=== PATIENT | female | born 1940 | race Caucasian/White ===

== ENCOUNTER 2024-09-12 02:55 | Inpatient (IN) ==
[2024-09-12] MEDS ORDERED: IOPAMIDOL 100 ML BOTTLE IV ONE (02:56)
[2024-09-12] MEDS: ONDANSETRON 4 MG/2 ML VIAL IV ONE (03:19)
[2024-09-12 03:38] LABS: Basophils # (Auto) 0.03 K/mcL (0.00-0.30); Basophils % (Auto) 0.4 % (0.0-2.0); Eosinophils # (Auto) 0.34 K/mcL (0.00-0.70); Eosinophils % (Auto) 4.6 % (0.0-7.0); Hematocrit 25.4 % (34.1-44.9); Hemoglobin 7.9 g/dL (11.2-15.7); Lymphocytes # (Auto) 0.72 K/mcL (1.50-4.80); Lymphocytes % (Auto) 9.7 % (15.5-49.0); Mean Corpuscular HGB Conc 31.1 g/dL (31.0-36.0); Monocytes # (Auto) 0.43 K/mcL (0.10-0.90); Monocytes % (Auto) 5.8 % (1.0-12.0); Neutrophils % (Auto) 79.4 % (38.0-78.0); Platelet Count 241 K/mcL (140-440); RBC 2.53 M/mcL (3.59-5.38); WBC 7.4 K/mcL (4.5-11.0)
[2024-09-12 03:58] LABS: Alcohol,Blood < 0.010 gm/dL (<0.010)
[2024-09-12 04:24] LABS: INR 1.2 (0.9-1.1); Prothrombin Time 16.0 sec (11.9-14.5)
[2024-09-12 05:08] LABS: Bilirubin,Urine Negative (Negative); Color,Urine YELLOW; Glucose,Urine (UA) Negative (Negative); Ketones,Urine Negative (Negative); Leukocyte Esterase,Urine Negative /uL (Negative); PH,Urine 6.0 (5.0-9.0); Protein,Urine Negative (Negative); Specific Gravity,Urine 1.028 (1.000-1.035); Urobilinogen,Urine Negative
[2024-09-12 05:20] LABS: ALT/SGPT 14 U/L (<40); AST/SGOT 21 U/L (<32); Albumin 3.2 gm/dL (3.2-5.2); Albumin/Globulin Ratio 1.5 (1.0-2.3); Alkaline Phosphatase 76 U/L (39-117); Anion Gap 10.0 (8.0-16.0); Bilirubin,Total 0.4 mg/dL (0.1-1.0); Blood Urea Nitrogen 12 mg/dL (8-23); Calcium 8.4 mg/dL (8.6-10.4); Carbon Dioxide 23 mmol/L (22-30); Chloride 105 mmol/L (96-108); Globulin 2.1 gm/dL (2.2-3.7); Glucose 109 mg/dL (70-105); Potassium 3.8 mmol/L (3.3-5.1); Sodium 138 mmol/L (133-145)
[2024-09-12 05:20] LABS: Barbiturate Screen,Urine None detected; Benzodiazepines Screen,Urine None detected; Fentanyl, Urine Screen None Detected; Opiate Screen,Urine Suspect Positive; Oxycodone, Urine Screen None detected; Phencyclidine Screen,Urine None detected
[2024-09-12] MEDS ORDERED: ONDANSETRON 4 MG/2 ML VIAL IV PRN ×2 (06:55→16:22)
[2024-09-12] MEDS ORDERED: ACETAMINOPHEN 325 MG TABLET PO PRN (06:55)
[2024-09-12 07:31] LABS: Basophils # (Auto) 0.02 K/mcL (0.00-0.30); Basophils % (Auto) 0.3 % (0.0-2.0); Eosinophils # (Auto) 0.29 K/mcL (0.00-0.70); Eosinophils % (Auto) 4.5 % (0.0-7.0); Hematocrit 23.3 % (34.1-44.9); Hemoglobin 7.3 g/dL (11.2-15.7); Lymphocytes # (Auto) 0.69 K/mcL (1.50-4.80); Lymphocytes % (Auto) 10.6 % (15.5-49.0); Mean Corpuscular HGB Conc 31.3 g/dL (31.0-36.0); Monocytes # (Auto) 0.50 K/mcL (0.10-0.90); Monocytes % (Auto) 7.7 % (1.0-12.0); Neutrophils % (Auto) 76.7 % (38.0-78.0); Platelet Count 239 K/mcL (140-440); RBC 2.33 M/mcL (3.59-5.38); WBC 6.5 K/mcL (4.5-11.0)
[2024-09-12] MEDS ORDERED: HYDROmorphone 0.5 MG/0.5 ML SYRINGE IV PRN (08:05)
[2024-09-12] MEDS ORDERED: POLYETHYLENE GLYCOL 3350 17 GM PACKET PO PRN (08:05)
[2024-09-12] MEDS ORDERED: ACETAMINOPHEN 500 MG TABLET PO PRN (08:12)
[2024-09-12] MEDS: HYDROmorphone 0.5 MG/0.5 ML SYRINGE IV PRN (08:36)
[2024-09-12] MEDS: ACETAMINOPHEN 1,000 MG/100 ML BAG IV PRN (10:06)
[2024-09-12] MEDS: LACTATED RINGERS 1,000 ML IV SCH ×2 (10:48→19:10)
[2024-09-12] MEDS: 0.9 % SODIUM CHLORIDE 1,000 ML IV SCH (10:48)
[2024-09-12] MEDS: DOCUSATE SODIUM 100 MG CAPSULE PO SCH (10:49)
[2024-09-12] MEDS: 0.9 % SODIUM CHLORIDE 250 ML IV SCH (11:01)
[2024-09-12] MEDS: 0.9 % SODIUM CHLORIDE 10 ML SYRINGE IV SCH (14:30)
[2024-09-12] MEDS ORDERED: fentaNYL 100 MCG/2 ML VIAL ONE (15:16)
[2024-09-12] MEDS ORDERED: PROPOFOL 200 MG/20 ML VIAL IV ONE (15:16)
[2024-09-12] MEDS ORDERED: ONDANSETRON 4 MG/2 ML VIAL ONE (15:17)
[2024-09-12] MEDS ORDERED: TRANEXAMIC ACID 1,000 MG/10 ML VIAL ONE (15:17)
[2024-09-12] MEDS ORDERED: DEXAMETHASONE 10 MG/ML VIAL ONE (15:17)
[2024-09-12] MEDS ORDERED: LIDOCAINE 2% PF 5 ML VIAL ONE (15:17)
[2024-09-12] MEDS: ceFAZolin 2 GM in DEXTROSE 5% IN WATER 50 ML IV SCH (15:32)
[2024-09-12] MEDS ORDERED: LACTATED RINGERS 250 ML IV PRN (16:22)
[2024-09-12] MEDS ORDERED: diphenhydrAMINE 50 MG/ML VIAL IV PRN (16:22)
[2024-09-12] MEDS ORDERED: MEPERIDINE 25 MG/ML VIAL IV PRN (16:22)
[2024-09-12] MEDS ORDERED: NALOXONE HCL 0.4 MG/ML VIAL IV PRN (16:22)
[2024-09-12] MEDS: ACETAMINOPHEN 1,000 MG/100 ML BAG IV ONE (16:52)
[2024-09-12] MEDS: GENTAMICIN SULFATE 800 MG/20 ML VIAL IR ONE (16:54)
[2024-09-12] MEDS: IPRATROPIUM/ALBUTEROL 3 ML AMPUL.NEB NEB PRN (17:03)
[2024-09-12] MEDS: fentaNYL 100 MCG/2 ML VIAL IV PRN (17:16)
[2024-09-12] MEDS: METHOCARBAMOL 1,000 MG/10 ML VIAL IV PRN (17:18)
[2024-09-12] MEDS: MELATONIN 3 MG TABLET PO SCH (19:40)
[2024-09-12 20:45] LABS: Hematocrit 32.1 % (34.1-44.9); Hemoglobin 10.2 g/dL (11.2-15.7)
[2024-09-12] MEDS: SENNOSIDES 1 TABLET PO SCH (21:26)
[2024-09-12] MEDS: ATORVASTATIN 20 MG TABLET PO SCH (21:26)
[2024-09-12] MEDS: URSODIOL 300 MG CAPSULE PO SCH (21:26)
[2024-09-12] MEDS: ZOLPIDEM 5 MG TABLET PO SCH (21:26)
[2024-09-13] MEDS: HYDROcodone/APAP 10/325MG TABLET PO PRN (04:57)
[2024-09-13 06:49] LABS: Basophils # (Auto) 0.02 K/mcL (0.00-0.30); Basophils % (Auto) 0.2 % (0.0-2.0); Eosinophils # (Auto) 0 K/mcL (0.00-0.70); Eosinophils % (Auto) 0 % (0.0-7.0); Hematocrit 31.9 % (34.1-44.9); Hemoglobin 9.9 g/dL (11.2-15.7); Lymphocytes # (Auto) 0.50 K/mcL (1.50-4.80); Lymphocytes % (Auto) 5.7 % (15.5-49.0); Mean Corpuscular HGB Conc 31.0 g/dL (31.0-36.0); Monocytes # (Auto) 0.24 K/mcL (0.10-0.90); Monocytes % (Auto) 2.7 % (1.0-12.0); Neutrophils % (Auto) 91.1 % (38.0-78.0); Platelet Count 261 K/mcL (140-440); RBC 3.23 M/mcL (3.59-5.38); WBC 8.8 K/mcL (4.5-11.0)
[2024-09-13 07:23] LABS: Anion Gap 14.0 (8.0-16.0); Blood Urea Nitrogen 9 mg/dL (8-23); Calcium 8.5 mg/dL (8.6-10.4); Carbon Dioxide 22 mmol/L (22-30); Chloride 104 mmol/L (96-108); Glucose 161 mg/dL (70-105); Potassium 4.1 mmol/L (3.3-5.1); Sodium 140 mmol/L (133-145)
[2024-09-13] MEDS: METOPROLOL SUCCINATE 25 MG TAB.XL.24H PO SCH (10:32)
[2024-09-13] MEDS: AMIODARONE HCL 200 MG TABLET PO SCH (10:32)
[2024-09-13] MEDS: CITALOPRAM 20 MG TABLET PO SCH (10:32)
[2024-09-13] MEDS: LEVOTHYROXINE 75 MCG TABLET PO SCH (10:32)
[2024-09-13] MEDS: ONDANSETRON 4 MG/2 ML VIAL IV PRN (10:33)
[2024-09-13] MEDS: MAGNESIUM SULFATE 2 GM/50 ML BAG IV ONE (10:39)
[2024-09-14 07:00] LABS: Basophils # (Auto) 0.03 K/mcL (0.00-0.30); Basophils % (Auto) 0.3 % (0.0-2.0); Eosinophils # (Auto) 0.38 K/mcL (0.00-0.70); Eosinophils % (Auto) 3.5 % (0.0-7.0); Hematocrit 30.5 % (34.1-44.9); Hemoglobin 9.6 g/dL (11.2-15.7); Lymphocytes # (Auto) 0.66 K/mcL (1.50-4.80); Lymphocytes % (Auto) 6.1 % (15.5-49.0); Mean Corpuscular HGB Conc 31.5 g/dL (31.0-36.0); Monocytes # (Auto) 0.89 K/mcL (0.10-0.90); Monocytes % (Auto) 8.2 % (1.0-12.0); Neutrophils % (Auto) 81.8 % (38.0-78.0); Platelet Count 288 K/mcL (140-440); RBC 3.13 M/mcL (3.59-5.38); WBC 10.8 K/mcL (4.5-11.0)
[2024-09-14 07:23] LABS: Phosphorous 2.0 mg/dL (2.5-4.5)
[2024-09-14 07:33] LABS: Anion Gap 9.0 (8.0-16.0); Blood Urea Nitrogen 12 mg/dL (8-23); Calcium 8.3 mg/dL (8.6-10.4); Carbon Dioxide 27 mmol/L (22-30); Chloride 102 mmol/L (96-108); Glucose 114 mg/dL (70-105); Potassium 4.2 mmol/L (3.3-5.1); Sodium 138 mmol/L (133-145)
[2024-09-14] MEDS: NEUTRA PHOS 1 PACKET PO ONE (13:12)
[2024-09-14] MEDS: SODIUM PHOSPHATE 30 MMOL in DEXTROSE 5% IN WATER 500 ML IV ONE (13:12)
[2024-09-14] MEDS: APIXABAN 5 MG TABLET PO SCH (21:13)
[2024-09-15 06:39] LABS: Basophils # (Auto) 0.05 K/mcL (0.00-0.30); Basophils % (Auto) 0.6 % (0.0-2.0); Eosinophils # (Auto) 0.85 K/mcL (0.00-0.70); Eosinophils % (Auto) 9.9 % (0.0-7.0); Hematocrit 32.9 % (34.1-44.9); Hemoglobin 10.2 g/dL (11.2-15.7); Lymphocytes # (Auto) 1.04 K/mcL (1.50-4.80); Lymphocytes % (Auto) 12.1 % (15.5-49.0); Mean Corpuscular HGB Conc 31.0 g/dL (31.0-36.0); Monocytes # (Auto) 1.07 K/mcL (0.10-0.90); Monocytes % (Auto) 12.4 % (1.0-12.0); Neutrophils % (Auto) 64.8 % (38.0-78.0); Platelet Count 288 K/mcL (140-440); RBC 3.33 M/mcL (3.59-5.38); WBC 8.6 K/mcL (4.5-11.0)
[2024-09-15 07:25] LABS: Anion Gap 11.0 (8.0-16.0); Blood Urea Nitrogen 11 mg/dL (8-23); Calcium 8.2 mg/dL (8.6-10.4); Carbon Dioxide 27 mmol/L (22-30); Chloride 101 mmol/L (96-108); Glucose 95 mg/dL (70-105); Phosphorous 3.9 mg/dL (2.5-4.5); Potassium 4.3 mmol/L (3.3-5.1); Sodium 139 mmol/L (133-145)
[2024-09-15] MEDS: SPIRONOLACTONE 25 MG TABLET PO SCH (08:27)
[2024-09-15 11:58] VITALS: TEMP 97.3; O2SAT 93
== END 2024-09-15 11:45 | disposition home health service (06) | DRG 522 ==
LOC: ED 02:55 → MEDSUR 07:35
PROVIDERS: ADMIT Student in an Organized Health Care Education/Training Program; ATTEND Student in an Organized Health Care Education/Training Program
PROC: HEMIHIP (2024-09-12 15:39)